=== PATIENT | female | born 1980 | race African-American/Black ===

== ENCOUNTER 2017-07-07 16:37 | Emergency (ER) | payer OTHER ==
[~2017-07-07] VITALS: Ht 175.3 cm; Wt 73.1 kg
[~2017-07-07 16:37] MED LIST: KEFLEX500 MG PO; NORCO 5/3251 TABLET PO; ZOFRAN ODT4 MG PO
[2017-07-07] MEDS ORDERED: NORCO 5/3251 TABLET PO (17:31)
[2017-07-07] MEDS ORDERED: MOTRIN600 MG PO (17:31)
[2017-07-07 17:48] VITALS: BP 143/82
== END 2017-07-07 17:50 | disposition home or self-care (01) ==
LOC: EME 16:37
PROC: 2W3KX1Z Immobilization of Left Finger using Splint (ICD-10-PCS; principal; 2017-07-07)
PROC: 0H9QXZZ Drainage of Finger Nail, External Approach (ICD-10-PCS; principal; 2017-07-07)
DX: S62.601A Fracture of unspecified phalanx of left index finger, initial encounter for closed fracture (principal); S60.122A Contusion of left index finger with damage to nail, initial encounter; W23.0XXA Caught, crushed, jammed, or pinched between moving objects, initial encounter; Y92.810 Car as the place of occurrence of the external cause; F17.200 Nicotine dependence, unspecified, uncomplicated
CPT/HCPCS: 73130; 99281; 99284